=== PATIENT | male | born 2000 | race Two or more races ===

== ENCOUNTER → 2019-06-13 | Outpatient (CLI) | payer OTHER ==
--- NOTE | 2019-06-14 08:49 | ECHO ---
DATE OF STUDY: 06/13/2019 REFERRING PHYSICIAN: Cesar Silverman INDICATION: Hypertrophic cardiomyopathy. HEIGHT: 180 cm WEIGHT: 65 kg DIMENSIONS: IVS: 0.9 LV: 5.0 LVPW: 0.8 LA: 3.0 Aorta: 2.5 IVS: 1.7 Mitral E wave velocity: 98 A wave: 19 E prime septal: 18 E prime lateral: 23 Left atrium volume index: 17 FINDINGS: The study is of excellent technical quality. The patient is in sinus rhythm. Left ventricle is normal size and systolic function with estimated left ventricular ejection fraction (LVEF) 55-60%. Computer calculated LVEF was 56%. Right ventricle is also normal size and systolic function. Both atria are normal. All four cardiac valves were well seen and appear normal. No pericardial effusion is noted. Inferior vena cava is normal size. Aortic root, aortic arch and visualized segment of abdominal aorta all appear normal. Doppler interrogation of aortic valve reveals no stenosis or insufficiency. There is trace mitral, tricuspid and pulmonic insufficiency. Calculated pulmonary artery pressure is within normal limits. Mitral inflow pattern and tissue Doppler imaging of mitral annulus reveal normal diastolic function of left ventricle. CONCLUSIONS: 1. Study is of excellent technical quality. 2. Normal LV size, systolic and diastolic function. 3. Trace mitral, tricuspid and pulmonic insufficiency. 4. Normal central venous pressure and normal pulmonary artery pressure. 5. No evidence for hypertrophic cardiomyopathy, essentially normal echocardiogram. COMMENT: Subacute bacterial endocarditis (SBE) prophylaxis is not recommended. MTDD
== END ==
LOC: M CARPUL 09:45
PROVIDERS: ATTEND Physician Assistant
DX: R07.9 Chest pain, unspecified (principal)